=== PATIENT | male | born 1995 | race Asian ===

== ENCOUNTER 2022-02-17 03:00 | Emergency (ER) | payer OTHER ==
[~2022-02-17] VITALS: Ht 170.2 cm; Wt 109.1 kg
[2022-02-17 03:45] VITALS: BP 127/85
[2022-02-17] MEDS ORDERED: DOXY-354 PO (03:50)
[2022-02-17] MEDS ORDERED: IBUP-2070 PO (03:50)
[2022-02-17] MEDS ORDERED: DOXYCYCLINE HYCLATE 100 MG TABLET PO ONE (04:00)
[2022-02-17] MEDS ORDERED: IBUPROFEN 600 MG TABLET PO ONE (04:00)
== END 2022-02-17 04:39 | disposition home or self-care (01) ==
LOC: EMS 03:01
DX: L02.211 Cutaneous abscess of abdominal wall (principal); L03.311 Cellulitis of abdominal wall
CPT/HCPCS: 99284; Z7502; Z7610